=== PATIENT | female | born 1950 | race Caucasian/White ===

== ENCOUNTER 2019-05-10 05:58 | Inpatient (IN) | payer BC, OTHER ==
[2019-05-03 15:45] VITALS: BMI 31.8
[2019-05-10] MEDS ORDERED: CEFAZOLIN 2 GM in DEXTROSE 5%-WATER - 100 ML IVPB ONE (07:08)
[2019-05-10] MEDS ORDERED: GABAPENTIN 300 MG CAPSULE (FP) PO STA (07:08)
[2019-05-10] MEDS ORDERED: BUPIVACAINE HCL/PF 0.5% (5MG/ML) 10 ML VIAL ONE (07:28)
[2019-05-10] MEDS ORDERED: MIDAZOLAM HCL 2 MG/2 ML SINGLE DOSE VIAL ONE ×2 (07:36→10:28)
[2019-05-10] MEDS ORDERED: BUPIVACAINE LIPOSOME/PF (EXPAREL) 266 MG/20 ML VIAL ONE (07:37)
--- NOTE | 2019-05-10 08:19 | HP ---
History & Physical Update - History History: No Change - Physical Physical: No Change - Assessment Assessment: No Change - Plan Plan: No Change
[2019-05-10] MEDS ORDERED: PHENYLEPHRINE HCL 10 MG/1 ML SINGLE DOSE VIAL ONE (09:08)
[2019-05-10] MEDS ORDERED: ONDANSETRON 4 MG/2 ML VIAL ONE ×2 (09:08→12:31)
[2019-05-10] MEDS ORDERED: DEXAMETHASONE SOD PHOSPHATE 4 MG/1 ML VIAL ONE ×2 (09:08→12:31)
[2019-05-10] MEDS ORDERED: ceFAZolin SODIUM 1 GM VIAL ONE ×2 (09:08→12:31)
[2019-05-10] MEDS ORDERED: GLYCOPYRROLATE 0.2 MG/1 ML VIAL ONE (10:30)
[2019-05-10] MEDS ORDERED: ONDANSETRON 4 MG/2 ML VIAL IVPUSH PRN ×2 (11:01→11:31)
[2019-05-10] MEDS ORDERED: oxyCODONE HCL 5 MG TABLET PO PRN ×3 (11:01→11:31)
[2019-05-10] MEDS ORDERED: PROMETHAZINE HCL 25 MG/1 ML VIAL IVPUSH PRN (11:01)
[2019-05-10] MEDS ORDERED: GUM MASTIC/STORAX/MSAL/ALCOHOL 1 DRP DROPSBTL MC ONE (11:07)
[2019-05-10] MEDS ORDERED: LACTATED RINGERS SOLUTION 1,000 ML IV SCH ×2 (11:15→11:45)
--- NOTE | 2019-05-10 11:42 | OP ---
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 Transforaminal interbody fusion of L4-5 with allograft and neuromonitoring Surgeon: Presley Martin Tobacco Sorter: Fior Graves Anesthesiologist/FOREMAN OR SUPERVISOR AND OPERATOR: Castillo Corral Anesthesia: Spinal Estimated Blood Loss (mls): 20 Fluid Volume Replaced (mls): 1,800 Operative Report Dictated: Yes
--- NOTE | 2019-05-10 11:43 | SURG ---
Surgery [place] Line Attendant Note [place] Line Attendant: Fior Graves PA-C Date of Service: 05/10/19 Diagnosis: lumbar spondylolithesis of L4-5 Procedure: s/p posterior lumbar decompression, instrumentation, fusion. Transforaminal interbody fusion of L4-5 with allograft and neuromonitoring I was present for the entirety of the operative procedure. For further detail, please refer to operative report. Visit type - Case Type Case Type: Scheduled - Emergency Emergency Visit: No - New patient This patient is new to me today: Yes Date on this admission: 05/10/19
[2019-05-10] MEDS ORDERED: ACETAMINOPHEN 1000 MG/100 ML VIAL (NON FORMULARY) IVPB SCH (11:45)
[2019-05-10] MEDS ORDERED: diazePAM 2 MG TABLET ONE (12:45)
[2019-05-10] MEDS ORDERED: diazePAM 2 MG TABLET PO SCH (13:00)
--- NOTE | 2019-05-10 13:26 | OP ---
DATE OF OPERATION: 05/10/2019 PREOPERATIVE DIAGNOSES: 1. L4-5 stenosis. 2. L4-5 spondylolisthesis. POSTOPERATIVE DIAGNOSES: 1. L4-5 stenosis. 2. L4-5 spondylolisthesis. PROCEDURE PERFORMED: 1. Transforaminal lumbar interbody fusion L4-5. 2. Placement of interbody cage, L4-5. 3. Placement of instrumentation, L4-5. SURGEON: Presley Martin MD MARINE DRILLER: NETTA Gaines ESTIMATED BLOOD LOSS: 50 mL. IV FLUIDS: Per anesthesia. ANESTHESIA: Spinal/TLIP block. COMPLICATIONS: There were none. DISPOSITION: Patient was brought to the PACU in stable condition. INDICATIONS FOR SURGERY: Patient is a 69-year-old female who has been suffering from pain from her back down her legs. X-ray and MRI are completed, which noted that she had spinal stenosis at L4-5 secondary a spondylolisthesis. She had gone through an exhaustive course of treatment for this, which included medications, physical therapy as well as injections. Unfortunately, her pain continued to persist despite all this. At this point, risks, benefits, and alternatives were discussed, and the patient consented to surgery. DESCRIPTION OF PROCEDURE: Patient was brought to the operating room by anesthesia staff. After appropriate patient identification was performed, spinal anesthesia was given. TLIP block was given. Patient was able to position herself prone onto the OR table with all areas of bony prominences well padded at this time. Two needles were placed in the back to espinoza off the L4-5 segments. The C-arm marked off the pedicles. Her back was prepped and draped in sterile manner. At this point, a time-out was completed. Incision were made bilaterally over the L4-L5 pedicles. Dissection was carried down to the fascia. Fascia was split open at this time. Under C-arm guidance, trocars were advanced into both the L4 and the L5 pedicles. Through the trocars, a wire was inserted. Over the wire, screws were inserted. On the right hand side, retractor blades were set up to expose the L4-5 facet joint. The facet joint was removed. The disk was entered. Using a series of pituitaries, Kerrisons, and curettes, a diskectomy was completed. Endplates were decorticated at this time. Bone graft was laid down. A cage filled with bone graft was placed in. Screw heads were placed over the screws. A shae was measured and placed in. Caps and compression was applied. On the left hand side, a shae was measured and placed in. Caps and compression was applied. All x-ray instrumentation was removed at this time. AP and lateral x-rays confirmed the instrumentation to be in good position. The fascia was closed with a No. 1 Vicryl suture. Subcutaneous tissues were closed with 2-0 Vicryl suture. Skin was closed with 3-0 Monocryl suture. Dermabond was applied. Steri-Strips were applied. A sterile dressing was applied. Patient was placed supine on the OR bed and brought to the PACU in stable condition. Ludin MCKENZIE/[id number]
[2019-05-10] MEDS ORDERED: CEFAZOLIN 1 GM/D5W 1 GM/50 ML BAG ONE (15:20)
[2019-05-10] MEDS ORDERED: CEFAZOLIN 1 GM/D5W 1 GM/50 ML BAG IVPB SCH (16:00)
[2019-05-10 16:34] VITALS: TEMP 97.8
[2019-05-10] MEDS ORDERED: oxyCODONE HCL 5 MG TABLET ONE (17:14)
[2019-05-10 17:46] VITALS: BP 112/65; PULSE 64
[2019-05-10] MEDS ORDERED: ACETAMINOPHEN 325 MG TABLET (FP) PO SCH (18:30)
[2019-05-10] MEDS ORDERED: ATORVASTATIN CA 20 MG TABLET (FP) PO SCH (22:00)
[2019-05-10] MEDS ORDERED: DOCUSATE SODIUM 100 MG CAPSULE (FP) PO SCH (22:00)
[2019-05-10] MEDS ORDERED: PRAMIPEXOLE DIHYDROCHLORIDE 0.25 MG TABLET PO SCH (22:00)
[2019-05-10] MEDS ORDERED: GABAPENTIN 300 MG CAPSULE (FP) PO SCH (22:00)
[2019-05-11] MEDS ORDERED: PATIENT'S OWN MEDICATION (NON-FORMULARY) (Omeprazole [Omeprazole] 40 MG) PO SCH (10:00)
[2019-05-11] MEDS ORDERED: POTASSIUM CHLORIDE TABS 10 MEQ TABLET.ER (FP) PO SCH (10:00)
[2019-05-11] MEDS ORDERED: PANTOPRAZOLE 40 MG TABLET (FP) PO SCH (10:00)
[2019-05-11] MEDS ORDERED: LISINOPRIL 10 MG TABLET (FP) PO SCH (10:00)
[2019-05-11] MEDS ORDERED: POTASSIUM CHLORIDE 10 MEQ PO SCH (10:00)
[2019-05-11] MEDS ORDERED: HYDROCHLOROTHIAZIDE 25 MG TABLET (FP) PO SCH (10:00)
== END 2019-05-10 17:45 | disposition home or self-care (01) | DRG 460 ==
LOC: FM/S 05:58
PROVIDERS: ADMIT Orthopaedic Surgery Orthopaedic Surgery of the Spine; ATTEND Orthopaedic Surgery Orthopaedic Surgery of the Spine
PROC: 0SB20ZZ Excision of Lumbar Vertebral Disc, Open Approach (ICD-10-PCS; 2019-05-10)
PROC: 00NY0ZZ Release Lumbar Spinal Cord, Open Approach (ICD-10-PCS; 2019-05-10)
PROC: 4A11X4G Monitoring of Peripheral Nervous Electrical Activity, Intraoperative, External Approach (ICD-10-PCS; 2019-05-10)
PROC: 0SG00AJ Fusion of Lumbar Vertebral Joint with Interbody Fusion Device, Posterior Approach, Anterior Column, Open Approach (ICD-10-PCS; principal; 2019-05-10 09:37)
DX: M48.061 Spinal stenosis, lumbar region without neurogenic claudication (principal); M43.16 Spondylolisthesis, lumbar region
CPT/HCPCS: 36415; 72100-TC-FY; 86803; 87389; 94760; J0131